=== PATIENT | female | born 1970 | race Caucasian/White ===

== ENCOUNTER → 2019-12-26 13:18 | Outpatient (CLI) | payer OTHER, SELFPAY ==
--- NOTE | ~2019-12-26 | MM_ITS ---
EXAMINATION: MM screening tabitha BI w elvin HISTORY: Screening mammogram TECHNIQUE: Craniocaudal and mediolateral oblique 3-D tomosynthesis images were obtained and synthetic 2-D images were generated. CAD analysis was submitted and interpreted. COMPARISON: No prior mammogram is available for comparison at this institution. BREAST PARENCHYMAL COMPOSITION: There are scattered areas of fibroglandular density. FINDINGS: There is no mammographic evidence for malignancy in the right breast. There is a mass near the areola in the left breast, upper outer quadrant measuring 3.8 x 1.7 cm. There are associated calc ifications. IMPRESSION: 1. 3.8 cm left breast mass anteriorly in the upper outer quadrant with associated calcifications. 2. Additional mammographic views and possible breast ultrasound are recommended. BI-RADS Category 0: Incomplete: Needs additional imaging evaluation. Reviewed, dictated and finalized at location A. IMPRESSION: 1. 3.8 cm left breast mass anteriorly in the upper outer quadrant with associat ed calcifications. 2. Additional mammographic views and possible breast ultrasound are recommended . BI-RADS Category 0: Incomplete: Needs additional imaging evaluation.
== END ==
PROVIDERS: PCP Family Medicine; Visit Provider Family Medicine
DX: Z12.31 Encounter for screening mammogram for malignant neoplasm of breast (principal); R92.8 Other abnormal and inconclusive findings on diagnostic imaging of breast
CPT/HCPCS: 77063; 77067

== ENCOUNTER → 2020-01-13 09:36 | Outpatient (CLI) | payer OTHER, SELFPAY ==
--- NOTE | ~2020-01-13 | MMUS_ITS ---
EXAMINATION: MM diagnostic mammo unilat LT, US breast LT limited HISTORY: Follow-up left breast mass TECHNIQUE: Additional 3-D tomosynthesis images of the left breast were performed and synthetic 2-D im ages were generated. CAD analysis was submitted and interpreted. High resolution left breast ultrasou nd was performed. COMPARISON: 12/26/2019 BREAST PARENCHYMAL COMPOSITION: BREAST PARENCHYMAL COMPOSITION: There are scattered areas of fibroglandular density. FINDINGS: MAMMOGRAPHIC FINDINGS: There is a persistent circumscribed mass in the upper outer quadrant of the left breast anteriorly me asuringr 4 cm maximum dimension. There are internal calcifications. ULTRASOUND: Left breast ultrasound: In the subareolar location of the left breast there is a circumscribed predominantly hypoechoic heter ogeneous mass with parallel orientation and posterior acoustic shadowing measuring 3.3 x 3 x 1.5 cm. There are internal calcifications. IMPRESSION: 1. Circumscribed oval hypoechoic left breast mass measuring 3.3 cm maximum dimension in the subareola r location of the left breast corresponding to the mass seen on mammogram. 2. Ultrasound-guided left breast biopsy recommended. BI-RADS category 4, suspicious findings. Reviewed, dictated and finalized at location A. IMPRESSION: 1. Circumscribed oval hypoechoic left breast mass measuring 3.3 cm maximum dime nsion in the subareolar location of the left breast corresponding to the mass s een on mammogram. 2. Ultrasound-guided left breast biopsy recommended. BI-RADS category 4, suspicious findings.
== END ==
PROVIDERS: PCP Family Medicine; Visit Provider Family Medicine
DX: R92.8 Other abnormal and inconclusive findings on diagnostic imaging of breast (principal)
CPT/HCPCS: 76642; 77065

== ENCOUNTER 2020-01-30 10:26 | Outpatient (CLI) | payer OTHER, SELFPAY ==
--- NOTE | ~2020-01-30 | MMUS_ITS ---
US breast biopsy LT w image, MM post biopsy invasive LT 01/30/2020 11:22 (accession [id number]), 01/30/2020 11:37 (accession [id number]) EXAMINATION: US GUIDED NEEDLE BIOPSY WITH VACUUM ASSISTANCE DATE: 01/30/2020 11:46 CDT INDICATION: Left breast mass seen on recent examination. Ultrasound-guided core biopsy is requested to evaluate for malignancy. TECHNIQUE AND FINDINGS: The risks and potential benefits of the procedure were discussed with the patient, and written inform ed consent was obtained. After sterile preparation of the left breast, 1% lidocaine was utilized for local anesthesia. 1% lidocaine with epinephrine was used for deep anesthesia. A 10G vacuum-assisted biopsy gun needle was advanced through to the outer edge of the region of inter est from a left lateral approach utilizing sonographic guidance. A total of three tissue core sample s were obtained through the lesion. An Inrad tissue marker clip was then placed at the biopsy site. Hemostasis was achieved. The patient tolerated procedure well and there was no evidence of immediate complication. The patien t was given verbal instructions partly is from the department. Left breast mammograms to document ti ssue marker clip placement. The tissue samples were submitted to surgical pathology for histologic an alysis.] IMPRESSION: 1. Successful ultrasound-guided vacuum-assisted biopsy of left breast mass with tissue marker placem ent. Please refer to pathology report for histologic analysis. Reviewed, dictated and finalized at location A. IMPRESSION: 1. Successful ultrasound-guided vacuum-assisted biopsy of left breast mass wit h tissue marker placement. Please refer to pathology report for histologic anal ysis.
== END 2020-01-30 10:27 | disposition home or self-care (01) ==
PROVIDERS: PCP Family Medicine; Visit Provider Family Medicine
DX: R92.8 Other abnormal and inconclusive findings on diagnostic imaging of breast (principal)
CPT/HCPCS: 19083; 88305; A4648

== ENCOUNTER 2020-02-15 00:37 | Outpatient (CLI) | payer OTHER, SELFPAY ==
[2020-02-15 19:30] LABS: SARS-CoV-2 RNA PCR Negative
== END 2020-02-15 00:38 | disposition home or self-care (01) ==
LOC: ANHCOVIDDT 00:37
PROVIDERS: PCP Family Medicine; Visit Provider Surgery
DX: Z01.812 Encounter for preprocedural laboratory examination (principal); Z20.828 Contact with and (suspected) exposure to other viral communicable diseases
CPT/HCPCS: 87635; C9803; U0003

== ENCOUNTER 2020-02-18 01:28 | Day surgery (SDC) | payer OTHER, SELFPAY ==
[2020-02-14 10:38] VITALS: BMI 31.6
--- NOTE | 2020-02-17 09:59 | WPDANESEPPF ---
Anes - Initial Pre Proc Eval Procedure: Operation Date: 02/18/20 12:00 Proposed Procedures p Ultrasound and/or Mammogram Guided Needle Localization, Left Breast Lumpectomy - Nehemias Moralez MD Date/Time: 02/17/20 09:59 Surgeon: Nehemias Moralez MD Pre Op Diagnosis: Left Breast Mass Patient Data Age: 49 Gender: F Height: 1.65 m Weight: 86.18 kg Allergies Allergy/AdvReac Type Severity Reaction Status Date / Time No Known Allergies Allergy Mild Unverified 02/18/20 08:38 Home Medications Medication Instructions Recorded Confirmed Type escitalopram oxalate 20 mg tablet 20 mg PO DAILY 12/20/19 02/18/20 History liothyronine 25 mcg tablet 75 mcg PO DAILY tablet 12/20/19 02/18/20 History metformin 500 mg tablet 1,500 mg PO DAILY tablet 12/20/19 02/18/20 History semaglutide [Rybelsus] 3 mg PO DAILY 02/14/20 02/18/20 History Patient hx anesthesia problems: none Family hx anesthesia problems: none [facility] Past Medical History Medical History (Updated 02/17/20 @ 09:59 by Austin López DO) Anxiety Depression Hypothyroidism Social History Social History Smoking status: Never smoker Second hand tobacco smoke exposure: No Smoking end date: 06/26/97 Alcohol intake: current Drinks per week: 6 Substance use: never Substance use type: does not use Gender identity (if verbalized by the patient): Female Spiritual care concerns: No Anes - Eval Final PreProcedure Day of Procedure 02/17/20 09:59 Patient weight: obese Heart: regular rate and rhythm Lungs: clear to auscultation and normal air movement Airway: Mallampati scale class II Neurological: alert and oriented Last oral intake: >/= 8 hours ASA classification: II Emergent: no Anesthetic plan: proceed Anesthesia type and monitoring: general LMA and standard monitoring Informed Consent: The patient's anesthetic plan and its attendant risks and benefits were discussed with the patient/family/POA. Questions were solicited and answers provided to the satisfaction of the patient/family/POA.
[2020-02-18] VITALS (8 sets, daily range): BP systolic 125–152; BP diastolic 90–98; PULSE 70–89; RESP 12–20; TEMP 36.1–36.3; O2SAT 97–100
--- NOTE | ~2020-02-18 | MM_ITS ---
EXAMINATION: MM needle loc LT, MM surgical specimen LT DATE: 02/18/2020 10:16 (accession [id number]), 02/18/2020 13:11 (accession [id number]) INDICATION: Lumbar localization for left breast mass excision TECHNIQUE: The procedure for a mammography-guided needle localization was discussed with the patient. Risks and benefits were detailed including risks of bleeding and infection. The patient verbalized u nderstanding and agreed to proceed. A time out was performed to verify the patient's name, date of , and site of procedure. The janina ent was placed in mediolateral compression, and the skin overlying the outer breast was prepared in usual fashion. The skin and subcutaneous soft tissues were infiltrated with 1% lidocaine for local an esthesia. Utilizing mammography guidance, a needle was advanced into the outer breast. Two confirmato ry films were obtained. The patient tolerated procedure without immediate complication. A specimen radiograph was performed. FINDINGS: Two view confirmatory films of the left breast demonstrate a needle within the left breast mass with its tip adjacent to the biopsy marker. The mass, biopsy, and biopsy marker are contained wi thin the surgical specimen. IMPRESSION: 1. Successful mammography-guided left breast needle localization. Reviewed, dictated and finalized at location A. IMPRESSION: 1. Successful mammography-guided left breast needle localization.
[2020-02-18] MEDS: LACTATED RINGERS 1,000 ML 30 ML IV CONT ×2 (08:49→13:40)
--- NOTE | 2020-02-18 09:33 | SUR.PREOP ---
pt to needle loc at this time.
--- NOTE | 2020-02-18 10:10 | SUR.PREOP ---
returned from needle loc
--- NOTE | 2020-02-18 11:06 | WPDHPUPDATE1 ---
History and Physical Update Update Date/Time: 02/18/20 11:06 History and Physical has been reviewed, including an updated exam of the patient. There are NO changes in the patient's condition. Risks, benefits, and alternatives have been discussed and questions answered. Patient agrees to proceed with procedure.
[2020-02-18 12:08] LABS: Glucose Point of Care 90 (65-105)
[2020-02-18] MEDS: ceFAZolin 2 GM/D5W 50 ML 2 GM/50 ML BAG IVPB (12:13)
[2020-02-18] MEDS: BUPIVACAINE/EPINEPHRINE 0.25% 50 ML VIAL 12 ML INFILTRATE (12:57)
--- NOTE | 2020-02-18 13:23 | SUR.OPER ---
Specimen cut- 1231 Excision-1252 Out of room- 1253 Mamms recieved- 1307 Confirmation- [id number]
--- NOTE | 2020-02-18 13:34 | P.OP_ITS ---
Procedure Note - Detailed Date of procedure: 02/18/20 Pre-op diagnosis: Left Breast Mass Post-op diagnosis: same Procedure performed: Left Breast needle localized tumor lumpectomy Description of procedure: The patient was seen preoperatively in the holding area, and I marked the patient on the operative side. She was brought to the operating room and anesthesia delivered. She was prepped and draped in the usual sterile fashion around the localizing wire that had been placed in the left breast in radiology. I carefully reviewed the patient's post localization radiology films that were provided in the room on the back lit Radiology viewing screens. A timeout was performed confirming patient and site of surgery being the left breast which has a localization wire within it Along with a marker clip from the previous core biopsy. The localizing wire was noted to be entering the breast in the mid left breast at approximately the level of the nipple-areolar border on the lateral side of the nipple. An incision was made along lateral nipple-areolar border intersecting the wire and I carefully with tissue retraction dissected straight down along the wire for about O.5 cm. I also dissected somewhat medially lifting the lateral side of the nipple-areolar complex up off the underlying tumor. I then grasped the breast tissue both superiorl and inferior to the wire and excised an approximate area of [3 x 3 x 4 cm] around the wire itself. This included the breast tissue just beyond the curled hook at the end of the wire. The tissue surrounding the wire was removed widely with a scalpel and then electrocautery was used for hemostasis. A black short suture was placed superiorly on the specimen and a long green suture was placed laterally on it. The specimen was oriented on a grid and sent for specimen mammogram. I DID NOT send the breast tissue for fresh tissue exam immediate report requested, but rather sent it fresh to pathology after the specimen mammogram. While we awaited the report of the specimen mammogram I carefully inspected the entire inner circumference of the biopsy cavity. Bovie cautery was used for hemostasis. hemostasis appeared to be very good. Some more local anesthetic was infiltrated into the root of the cavity and on underneath the skin on either side of the incision. Specimen mammogram was called back adequate by the radiologist containing a clip, wire, and the abnormality. The wound was irrigated, hemostasis acheived, and closed in 2 layers with 3-0 un-dyed Vicryl and 4-0 Monocryl subcuticular skin closure. Surgical glue was applied to the wound. All counts were correct at the end of the case. The patient tolerated the procedure well and was discharged to the recovery room in stable condition. Anesthesia: GETA Surgeon: Nehemias Moralez MD Embossing Press Operator: Henrik RODRIGEZ, OR machine assistant Estimated blood loss (mL): 4 Drains: No Packing: No Pathology: yes ( Specimen from under left nipple-areolar complex) Complications: No immediate complications Condition: stable Disposition: PACU Findings: breast tissue excise seem to be thick white with the palpable fullness. Inferiorly there was more normal breasts fat than around the superior margin.
[2020-02-18 13:47] LABS: Glucose Point of Care 89 (65-105)
== END 2020-02-18 15:00 | disposition home or self-care (01) ==
PROVIDERS: PCP Family Medicine; Visit Provider Surgery
DX: N60.12 Diffuse cystic mastopathy of left breast (principal); N60.42 Mammary duct ectasia of left breast; N60.82 Other benign mammary dysplasias of left breast; N62 Hypertrophy of breast; R73.03 Prediabetes; E03.9 Hypothyroidism, unspecified; F41.9 Anxiety disorder, unspecified; Z79.899 Other long term (current) drug therapy; Z79.84 Long term (current) use of oral hypoglycemic drugs
CPT/HCPCS: 19301; 19281; 76098; 88305; 88307; A9270; C1769; J0690; J1100; J2250; J2405; J2704; J3010; J7120

== ENCOUNTER → 2021-11-30 10:49 | Outpatient (CLI) | payer OTHER, SELFPAY ==
--- NOTE | ~2021-11-30 | US_ITS ---
EXAMINATION: US thyroid DATE: 11/30/2021 11:19 INDICATION: Goiter. TECHNIQUE: Multiple ultrasound images of the thyroid were obtained. COMPARISON: None. FINDINGS: The right thyroid lobe measures 3.7 x 1.0 x 1.3 cm. The left thyroid lobe measures 3.2 x 1.2 x 1.2 c m. The thyroid demonstrates coarsened echotexture and increased vascularity. No discrete nodule. IMPRESSION: 1. Heterogeneous, hypervascular thyroid, likely chronic lymphocytic (Alhaji) thyroiditis. Reviewed, dictated and finalized at location A.
== END ==
PROVIDERS: PCP Family Medicine; Visit Provider Internal Medicine Endocrinology, Diabetes & Metabolism
DX: E04.9 Nontoxic goiter, unspecified (principal)
CPT/HCPCS: 76536

== ENCOUNTER → 2022-01-05 11:18 | Outpatient (CLI) | payer OTHER, SELFPAY ==
--- NOTE | ~2022-01-05 | MM_ITS ---
EXAMINATION: MM screening tabitha BI w elvin HISTORY: Screening mammogram TECHNIQUE: Craniocaudal and mediolateral oblique 3-D tomosynthesis images were obtained and synthetic 2-D images were generated. CAD analysis was submitted and interpreted. COMPARISON: 01/13/2020, 12/26/2019 BREAST PARENCHYMAL COMPOSITION: The breasts are almost entirely fatty. FINDINGS: There has been interval removal of previously described left breast mass with expected post surgical change at the surgical site. There is no suspicious mass, calcification, or architectural di stortion to suggest malignancy in either breast. There has been no suspicious interval change. IMPRESSION: 1. No mammographic evidence of malignancy. 2. Recommend routine screening mammography in one year. BI-RADS Category 2: Benign finding(s). Reviewed, dictated and finalized at location A.
== END ==
PROVIDERS: PCP Family Medicine; Visit Provider Family Medicine
DX: Z12.31 Encounter for screening mammogram for malignant neoplasm of breast (principal)
CPT/HCPCS: 77063; 77067

== ENCOUNTER 2022-02-02 08:00 | Outpatient (NON) | payer OTHER, SELFPAY | END 2022-02-02 08:01 | disposition home or self-care (01) | LOC: ANHLAB 02-03 08:20 | PROVIDERS: PCP Family Medicine; Visit Provider Internal Medicine Gastroenterology | DX: K63.5 Polyp of colon (principal) | CPT/HCPCS: 88305 ==

== ENCOUNTER 2022-02-02 10:31 | Day surgery (SDC) | payer OTHER, SELFPAY ==
[2022-01-04 08:36] VITALS: BMI 38.6
[2022-01-19 10:52] VITALS: BMI 38.5
[2022-02-02 10:52] VITALS: BMI 37.2
[2022-02-02 11:07] VITALS: BP 139/103; PULSE 83; RESP 20; TEMP 36.7; O2SAT 100
[2022-02-02 11:11] LABS: Glucose Point of Care 103 mg/dl (65-105)
--- NOTE | 2022-02-02 11:55 | P.PNAN_ITS ---
Anes - Initial Pre Proc Eval Procedure: Operation Date: 02/02/22 12:00 Proposed Procedures p Screening Colonoscopy - Surinder Aragon MD Date/Time: 02/02/22 11:55 Surgeon: Surinder Aragon MD Pre Op Diagnosis: NEOPLASM SCREENING Patient Data Age: 51 Gender: F Height: 1.65 m Weight: 101.4 kg Allergies Allergy/AdvReac Type Severity Reaction Status Date / Time No Known Allergies Allergy Mild Verified 02/02/22 10:47 Home Medications Medication Instructions Recorded Confirmed Type levothyroxine 50 mcg tablet 50 mcg PO DAILY 12/24/21 01/19/22 History (Synthroid) escitalopram oxalate 20 mg tablet 20 mg PO HS 01/19/22 01/19/22 History metformin 500 mg tablet 1,000 mg PO HS 01/19/22 01/19/22 History Laboratory Tests 02/02/22 11:07 POC Capillary Glucose 103 mg/dl mg/dl (65-105) Patient hx anesthesia problems: none Family hx anesthesia problems: none Results Review: All pre-operative results and documents have been reviewed as part of the pre- operative evaluation. [facility] Past Medical History Medical History Anxiety Chronic fatigue Depression Hypothyroidism Surgical History Surgical History S/P breast lumpectomy Family History Family History Father Hypertension Family history of elevated blood lipids Family history of diabetes mellitus in first degree relative Social History Social History Social History: Smoking status: Never smoker Second hand tobacco smoke exposure: No Smoking end date: 06/26/97 Alcohol intake: current Drinks per week: 2 Substance use: never Substance use type: does not use Living arrangements: with family Gender identity (if verbalized by the patient): Female Sexual Orientation (if Verbalized by the Patient): Straight or Heterosexual Spiritual care concerns: No Anes - Eval Final PreProcedure Day of Procedure 02/02/22 11:55 Patient weight: obese Heart: regular rate and rhythm Lungs: clear to auscultation Airway: Mallampati scale class II Neurological: alert and oriented Last oral intake: >/= 8 hours ASA classification: II Emergent: no Anesthetic plan: proceed Anesthesia type and monitoring: general GIVS and standard monitoring Results Review: All pre-operative results and documents have been reviewed as part of the pre- operative evaluation. Informed Consent: The patient's anesthetic plan and its attendant risks and benefits were discussed with the patient/family/POA. Questions were solicited and answers provided to the satisfaction of the patient/family/POA.
[2022-02-02] MEDS: LACTATED RINGERS 1,000 ML 150 ML IV CONT (12:06)
--- NOTE | 2022-02-02 12:11 | PM.HPGS ---
History of Present Illness History of Present Illness Consent: Risks, benefits, and alternatives have been discussed and questions answered. Patient agrees to proceed with procedure. Chief complaint: NEOPLASM SCREENING Narrative: Jason Stroud is a 51 year old female here for first screening colonoscopy Review of Systems Constitutional: Constitutional: Denies headache(s) and Denies weakness Eyes: Eyes: Denies blurry vision ENT: Reports Normal hearing present, Denies headache(s) and Denies neck pain Cardiovascular: Cardiovascular: Denies chest pain and Denies dyspnea Respiratory: Respiratory: Denies dyspnea Gastrointestinal: Gastrointestinal: Reports no additional gastrointestinal complaints Genitourinary: Genitourinary: Denies dysuria Musculoskeletal: Musculoskeletal: Denies neck pain Integumentary/Breasts: Skin/Breast: Denies dry skin Neurologic: Reports Normal hearing present, Denies headache(s) and Denies weakness Psychiatric: Psychiatric: Denies anxiety Endocrine: Endocrine: Denies change in body appearance Hematologic/Lymphatic: Hematologic/Lymphatic: Denies easy bleeding Allergic/Immunologic: Allergic/Immunologic: Denies urticaria PMFSH Past Medical History Medical History Anxiety Chronic fatigue Depression Hypothyroidism Surgical History Surgical History S/P breast lumpectomy Family History Family History Father Hypertension Family history of elevated blood lipids Family history of diabetes mellitus in first degree relative Social History Social History Social History: Smoking status: Never smoker Second hand tobacco smoke exposure: No Smoking end date: 06/26/97 Alcohol intake: current Drinks per week: 2 Substance use: never Substance use type: does not use Living arrangements: with family Gender identity (if verbalized by the patient): Female Sexual Orientation (if Verbalized by the Patient): Straight or Heterosexual Spiritual care concerns: No Meds Home Medications and Allergies Home Medications Medication Instructions Recorded Confirmed Type levothyroxine 50 mcg tablet 50 mcg PO DAILY 12/24/21 01/19/22 History (Synthroid) escitalopram oxalate 20 mg tablet 20 mg PO HS 01/19/22 01/19/22 History metformin 500 mg tablet 1,000 mg PO HS 01/19/22 01/19/22 History Allergies Allergy/AdvReac Type Severity Reaction Status Date / Time No Known Allergies Allergy Mild Verified 02/02/22 10:47 Vital Signs Vital Signs - 24 hr 02/02/22 11:07 Temperature 98.1 F Pulse Rate 83 Respiratory Rate 20 Blood Pressure 139/103 H Pulse Oximetry 100 Oxygen Delivery Room Air Exam Const: General: comfortable and no acute distress HENMT: General nose exam: Normal nares present Eyes: General: appearance normal, both eyes and all related structures Neck: Neck: no JVD Resp: Auscultation: clear to auscultation bilaterally Cardio: Rate: regular rate Rhythm: regular rhythm GI: Inspection: non-distended GI Palp: Yes Soft to palpation Skin: General skin exam: normal color Neuro: General: gait normal Speech: normal speech Extrem: General: normal to inspection Psych: Mental Status: mental status grossly normal Assessment and Plan Assessment and plan (1) Colon cancer screening: Code(s): Z12.11 - Encounter for screening for malignant neoplasm of colon Status: Acute Assessment and Plan: colonoscopy
[2022-02-02 12:30] VITALS: BP 138/92; PULSE 89; RESP 13; O2SAT 99
[2022-02-02 12:40] VITALS: BP 145/111; PULSE 83; RESP 13; O2SAT 99
[2022-02-02 12:50] VITALS: BP 158/105; PULSE 81; RESP 13; O2SAT 100
--- NOTE | 2022-02-02 13:16 | WPDANESPN ---
Anes - Prog Note Post-Op Date/Time: 02/02/22 13:16 Cardiovascular status: normal Respiratory status: normal Airway patency: baseline Mental status: baseline Post-Op hydration status: normal Vital Signs: Last Vital Signs Temp 36.7 C 02/02/22 11:07 Pulse 81 02/02/22 12:50 Resp 13 02/02/22 12:50 BP 158/105 H 02/02/22 12:50 Pulse Ox 100 02/02/22 12:50 O2 Del Method Room Air 02/02/22 12:50 Pain Score (VAS): 0 I/O: Intake & Output 02/01/22 02/02/22 02/02/22 23:59 07:59 15:59 Intake Total 400 Balance 400 02/02/22 11:07 POC Capillary Glucose 103 Patient Feedback: Patient satisfied with anesthetic care.
== END 2022-02-02 13:03 | disposition home or self-care (01) ==
PROVIDERS: PCP Family Medicine; Visit Provider Internal Medicine Gastroenterology
PROC: 0DJD8ZZ Inspection of Lower Intestinal Tract, Via Natural or Artificial Opening Endoscopic (ICD-10-PCS; CPT 45378; principal; 2022-02-02 12:00)
DX: Z12.11 Encounter for screening for malignant neoplasm of colon (principal)
CPT/HCPCS: 45385; 45382

== ENCOUNTER → 2023-03-18 09:42 | Outpatient (CLI) | payer OTHER, SELFPAY ==
--- NOTE | ~2023-03-18 | MM_ITS ---
EXAMINATION: MM screening tabitha BI w elvin HISTORY: Screening mammogram TECHNIQUE: Craniocaudal and mediolateral oblique 3-D tomosynthesis images were obtained and synthetic 2-D images were generated. CAD analysis was submitted and interpreted. COMPARISON: 01/05/2022 bilateral screening mammogram 01/30/2020 left ultrasound guided breast biopsy 01/13/2020 diagnostic left mammogram and limited left breast ultrasound 12/26/2019 bilateral screening mammogram BREAST PARENCHYMAL COMPOSITION: The breasts are almost entirely fatty. FINDINGS: There is no evidence of suspicious mass, calcification, or architectural distortion to sugg est malignancy in either breast. There has been no suspicious interval change. IMPRESSION: 1. No mammographic evidence of malignancy. 2. Recommend routine screening mammography in one year. BI-RADS Category 1: Negative Reviewed, dictated and finalized at location A.
== END ==
PROVIDERS: PCP Family Medicine; Visit Provider Family Medicine
DX: Z12.31 Encounter for screening mammogram for malignant neoplasm of breast (principal)
CPT/HCPCS: 77063; 77067

== ENCOUNTER 2024-06-15 09:46 | Outpatient (CLI) | payer OTHER, SELFPAY ==
--- NOTE | ~2024-06-15 | MM_ITS ---
EXAMINATION: MM screening tabitha BI w elvin HISTORY: Screening TECHNIQUE: Craniocaudal and mediolateral oblique 3-D tomosynthesis images were obtained and synthetic 2-D images were generated. CAD analysis was submitted and interpreted. COMPARISON: Examination is compared with multiple prior studies performed most recently on 03/18/2023 and dating back to 12/26/2019 BREAST PARENCHYMAL COMPOSITION: There are scattered areas of fibroglandular density. FINDINGS: Postoperative change within the upper outer anterior third of the left breast, consistent w ith patient's history. Otherwise stable parenchymal pattern without suspicious microcalcifications, unexpected architectural distortion, discrete masses or significant asymmetry. IMPRESSION: 1. No mammographic or tomographic evidence of malignancy. 2. Recommend routine screening mammography in one year. BI-RADS Category 2: Benign findings. Reviewed, dictated and finalized at location A. ER AUTOMOTIVE TECHNICIAN
== END 2024-06-15 09:47 | disposition home or self-care (01) ==
LOC: MICIMG 09:47
PROVIDERS: PCP Family Medicine; Visit Provider Family Medicine
DX: Z12.31 Encounter for screening mammogram for malignant neoplasm of breast (principal)
CPT/HCPCS: 77063; 77067

== ENCOUNTER 2025-06-24 13:22 | Outpatient (CLI) | payer OTHER, SELFPAY ==
--- NOTE | ~2025-06-24 | MM_ITS ---
EXAMINATION: MM screening tabitha BI w elvin HISTORY: Screening TECHNIQUE: Craniocaudal and mediolateral oblique 3-D tomosynthesis images were obtained and synthetic 2-D images were generated. CAD analysis was submitted and interpreted. COMPARISON: 2023, 2022, and 2021 BREAST PARENCHYMAL COMPOSITION: There are scattered areas of fibroglandular tissue. FINDINGS: No suspicious masses are seen. There are no suspicious calcifications. No unexplained architectural distortion is seen. Postop changes are again seen on the left. There are no skin or nipple abnormalities identified. There is no adenopathy seen on the images submitted. IMPRESSION: No mammographic evidence to suggest malignancy is seen. The patient may return to screening mammography as per ACR guidelines. BI-RADS 2 - Benign. Reviewed, dictated and finalized at location C. TIONAL TECHNICAL EDUCATION DIRECTOR
== END 2025-06-24 13:23 | disposition home or self-care (01) ==
LOC: MICIMG 13:23
PROVIDERS: PCP Family Medicine; Visit Provider Family Medicine
DX: Z12.31 Encounter for screening mammogram for malignant neoplasm of breast (principal)
CPT/HCPCS: 77063; 77067